=== PATIENT | male | born 1960 | race Caucasian/White ===

== ENCOUNTER 2018-10-16 00:22 | Emergency (ER) | payer BC, OTHER ==
[2018-10-16] MEDS ORDERED: TETRACAINE HCL 0.5% OPHTH SOL 1 DROP ONE (00:39)
[2018-10-16] MEDS ORDERED: ERYTHROMYCIN OPHTH OINT 1 APPLIC ONE (00:44)
[2018-10-16] MEDS ORDERED: ERYTHROMYCIN OPHTH OINT 1 APPLIC RIGHT_EYE ONE (00:47)
--- NOTE | 2018-10-16 00:49 | ED.PDOC ---
History of Present Illness - General Chief Complaint: Eye Problems Stated Complaint: right eye hit with broom yesterday AM Time Seen by Provider: 10/16/18 00:46 Source: patient Exam Limitations: no limitations - History of Present Illness Initial Comments: the patient's a 58-year-old male presenting to the emergency room secondary to having himself in the eye with a broom yesterday while at work. He has little bit of blurry vision and a little bit of a red eye on the right. Extraocular movements are intact. Pupil is reactive. Red reflexes present. Fluoresene shows 3 small linear corneal abrasions. Timing/Duration: 24 hours Severity: moderate Improving Factors: nothing Worsening Factors: nothing Associated Symptoms: denies symptoms Allergies/Adverse Reactions: Allergies NO KNOWN ALLERGY Allergy (Verified 10/16/18 00:37) Review of Systems - Review of Systems Constitutional: States: no symptoms reported EENTM: States: see HPI Respiratory: States: no symptoms reported Cardiology: States: no symptoms reported Gastrointestinal/Abdominal: States: no symptoms reported Genitourinary: States: no symptoms reported Musculoskeletal: States: no symptoms reported Skin: States: no symptoms reported Neurological: States: no symptoms reported Endocrine: States: no symptoms reported All other Systems: No Change from Baseline Past Medical History (General) - Patient Medical History Hx Seizures: No Hx Stroke: No Hx Dementia: No Hx Asthma: No Hx of COPD: No Hx Cardiac Disorders: No Hx Congestive Heart Failure: No Hx Pacemaker: No Hx Hypertension: Yes Hx Thyroid Disease: Yes Hx Diabetes: Yes Hx Gastroesophageal Reflux: No Hx Renal Disease: No Hx Cancer: No Hx of HIV: No Hx Hepatitis C: No Hx MRSA: No Surgical History: no surgical history - Vaccination History Hx Tetanus, Diphtheria Vaccination: No Hx Influenza Vaccination: Yes Hx Pneumococcal Vaccination: Yes - Social History Hx Tobacco Use: No Hx Alcohol Use: No Family Medical History - Family History Mother Family History: Unknown Physical Exam - Physical Exam General Appearance: Alert, Comfortable, No apparent distress Eye Exam: right other - ee history of present illness, left normal Ears, Nose, Throat: normal pharynx Neck: full range of motion, supple Respiratory: no respiratory distress, no accessory muscle use Cardiovascular/Chest: normal peripheral pulses, no edema, other - regular rate Peripheral Pulses: radial,right: 2+, radial,left: 2+ Gastrointestinal/Abdominal: non tender, soft Rectal Exam: deferred Back Exam: no CVA tenderness, no vertebral tenderness Extremity: non-tender, normal inspection, no pedal edema, normal capillary refill 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 He can use erythromycin ointment 1 cm to the right eye every 6 hours for 7 days. Motrin can be used for discomfort. ER warnings were given for any worsening. Departure - Departure Clinical Impression: Corneal abrasion Qualifiers: Encounter type: initial encounter Laterality: right Qualified Code(s): S05.01XA - Injury of conjunctiva and corneal abrasion without foreign body, right eye, initial encounter Disposition: Discharge to Home or Self Care Condition: Fair Departure Forms: ED Discharge - Pt. Copy, Patient Portal Self Enrollment Instructions: Corneal Abrasion (DC) Diet: regular diet Activity: increase activity as tolerated Referrals: Kimberly Simpson NP [Primary Care Provider] - 1-2 Weeks Additional Instructions: the patient is 58-year-old male presenting to the emergency room secondary to what appears to be a corneal abrasion, right eye sustained yesterday. He can use erythromycin ointment 1 cm to the right eye every 6 hours for 7 days. Motrin can be used for discomfort. ER warnings were given for any worsening.
[2018-10-16] MEDS ORDERED: TETRACAINE HCL 0.5% OPHTH SOL 1 DROP RIGHT_EYE ONE (00:51)
[2018-10-16 01:02] VITALS: BP 186/87; TEMP 98.1; O2SAT 99
== END 2018-10-16 00:55 | disposition home or self-care (01) ==
LOC: ER 00:22
DX: S05.01XA Injury of conjunctiva and corneal abrasion without foreign body, right eye, initial encounter (principal); I10 Essential (primary) hypertension; E07.9 Disorder of thyroid, unspecified; E11.9 Type 2 diabetes mellitus without complications; W22.8XXA Striking against or struck by other objects, initial encounter; Y99.0 Civilian activity done for income or pay; Y92.69 Other specified industrial and construction area as the place of occurrence of the external cause

== ENCOUNTER → 2019-03-01 | Outpatient (CLI) | payer BC, OTHER ==
--- NOTE | 2019-03-01 08:45 | RAD ---
EXAM DESCRIPTION: Pelvis CLINICAL HISTORY: 58 years Male, RIGHT AND LEFT HIP PAIN COMPARISON: None. TECHNIQUE: AP radiograph of the pelvis was performed. FINDINGS: The pelvic ring appears grossly intact on this single AP radiograph. No acute fracture or dislocation. Bilateral sacroiliac joints appear normal. Mild degenerative changes are identified in the bilateral hip joints. Enthesopathy changes of the pelvis. The visualized lumbo-sacral spine demonstrates mild degenerative changes. IMPRESSION: Single AP radiograph of the pelvis demonstrates grossly intact pelvic ring. Mild bilateral hip osteoarthritis. Electronically signed by: Tierney Keller MD 03/01/2019 8:[address] [facility]
--- NOTE | 2019-03-01 08:47 | RAD ---
EXAM DESCRIPTION: Knee,Left Complete CLINICAL HISTORY: 58 years Male, PAIN IN LEFT KNEE TECHNIQUE: 4 views of the left knee were performed. COMPARISON: None available. FINDINGS: The visualized bones appear well mineralized. No acute fracture or dislocation. 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 Heterotopic ossification is identified in the suprapatellar fossa. This could represent loose bodies versus ossification of the patellar tendon. The soft tissues appear grossly unremarkable. 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 Heterotopic ossification is identified in the suprapatellar fossa. This could represent loose bodies versus ossification of the patellar tendon. Electronically signed by: Tierney Keller MD 03/01/2019 8:45 AM [employer]
--- NOTE | 2019-03-01 08:48 | RAD ---
EXAM DESCRIPTION: Knee,Right Complete CLINICAL HISTORY: 58 years Male, PAIN IN RIGHT KNEE TECHNIQUE: 4 views of the right knee were performed. COMPARISON: None available. FINDINGS: The visualized bones appear well mineralized. No acute fracture or dislocation. 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 Enthesopathy of the superior aspect of the patella. Possible 1.3 cm loose body in the suprapatellar fossa. Small joint effusion. The soft tissues appear grossly unremarkable. 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 Enthesopathy of the superior aspect of the patella. Possible 1.3 cm loose body in the suprapatellar fossa. Small joint effusion. Electronically signed by: Tierney Keller MD 03/01/2019 8:46 AM [facility]
== END ==
LOC: RAD 07:55
PROVIDERS: ATTEND Orthopaedic Surgery
DX: M17.0 Bilateral primary osteoarthritis of knee (principal); M25.461 Effusion, right knee; M16.0 Bilateral primary osteoarthritis of hip; M76.891 Other specified enthesopathies of right lower limb, excluding foot